=== PATIENT | female | born 1945 | race Caucasian/White ===

== ENCOUNTER 2017-03-17 07:06 | Day surgery (SDC) | payer MEDICARE ==
[~2017-03-17 07:06] MED LIST: BALANCED SALT IRRIG SOLN COMB1 500 ML, EPINEPHRINE-PF 1:1000 1 MG IO ONE
[2017-03-17] MEDS ORDERED: LIDOCAINE HCL-MPF 1% 5 ML VIAL ONE (07:34)
[2017-03-17] MEDS ORDERED: BUPIVACAINE PF 0.5% 30 ML VIAL ONE (07:35)
[2017-03-17] MEDS ORDERED: CIPROFLOXACIN 0.3% OPHT DROP 2.5 ML BOTTLE ONE (07:36)
[2017-03-17] MEDS ORDERED: TETRACAINE HCL 0.5% OPHT DROP 2 ML BOTTLE ONE ×2 (07:36→07:38)
[2017-03-17] MEDS ORDERED: CYCLOPENTOLATE 1% OPHT DROP 2 ML BOTTLE ONE (07:36)
[2017-03-17] MEDS ORDERED: PHENYLEPHRINE 2.5% OPHT DROP 2 ML BOTTLE ONE (07:37)
[2017-03-17 07:38] LABS: BASOPHILS # (AUTO) 0.1 K/uL (0.0-8.0); BASOPHILS % (AUTO) 1.9 % (0.0-2.0); EOSINOPHILS # (AUTO) 0.2 K/uL (0.0-0.7); EOSINOPHILS % (AUTO) 2.3 % (0.0-7.0); HEMATOCRIT 41.4 % (37-47); HEMOGLOBIN 13.6 G/DL (12.0-16.0); LYMPHOCYTES # (AUTO) 2.3 K/UL (0.8-4.8); LYMPHOCYTES % (AUTO) 33.2 % (20.5-51.5); MEAN CORPUSCULAR HEMOGLOBIN 29.3 UUG (27.0-31.0); MEAN CORPUSCULAR HGB CONC 33 g/dL (32.0-37.0); MEAN CORPUSCULAR VOLUME 89.3 FL (81.0-99.0); MONOCYTES # (AUTO) 0.6 K/UL (0.1-1.30); MONOCYTES % (AUTO) 8.6 % (0.0-11.0); NEUTROPHILS # (AUTO) 3.6 K/UL (1.8-8.9); PLATELET COUNT (AUTO) 350 K/UL (150-450); RED BLOOD CELL COUNT(AUTO) 4.63 MIL/UL (4.2-5.4); WHITE BLOOD COUNT (AUTO) 6.8 K/UL (4.0-11.2)
[2017-03-17] MEDS ORDERED: NEO/POLYMYX B/DEXAME OPHT OINT 3.5 GM TUBE ONE (07:38)
[2017-03-17] MEDS ORDERED: PILOCARPINE 1% OPHT DROP 15 ML BOTTLE ONE (07:38)
[2017-03-17] MEDS ORDERED: EPINEPHRINE 1 MG/1 ML AMP ONE (07:38)
[2017-03-17] MEDS ORDERED: KETOROLAC 0.5% OPHT DROP 3 ML BOTTLE ONE (07:38)
[2017-03-17] MEDS ORDERED: BALANCED SALT IRRIG SOLN COMB2 15 ML IRRIG.SOLN ONE (07:38)
[2017-03-17] MEDS ORDERED: HYALURONATE SODIUM 8.5 MG/0.85 ML DISP.SYRIN ONE (07:38)
[2017-03-17 07:46] LABS: CARBON DIOXIDE 25 mmol/L (21-32); CHLORIDE 108 mmol/L (98-107); CREATININE 0.7 mg/dL (0.6-1.3); GLUCOSE 111 mg/dL (74-106); POTASSIUM 3.8 mmol/L (3.5-5.1); UREA NITROGEN, BLOOD 13 mg/dL (7-18)
[2017-03-17] MEDS ORDERED: FENTANYL CITRATE 100 MCG/2 ML AMPUL ONE (08:23)
[2017-03-17] MEDS ORDERED: MIDAZOLAM HCL 2 MG/2 ML VIAL ONE (08:24)
[2017-03-17] MEDS ORDERED: BALANCED SALT IRRIG SOLN COMB1 500 ML ONE (08:40)
== END 2017-03-17 09:40 | disposition home or self-care (01) ==
LOC: DS 07:06
PROVIDERS: ATTEND Dermatology MOHS-Micrographic Surgery
DX: H25.9 Unspecified age-related cataract (principal); Z88.0 Allergy status to penicillin; G45.9 Transient cerebral ischemic attack, unspecified; I10 Essential (primary) hypertension
CPT/HCPCS: 36415; 66984; 71010; 80048; 85025; 85730; 93005; A4663; J0171 ×2; J2250; J3010; J3490 ×2; J3590; J7120; J7321; V2632